=== PATIENT | male | born 1960 | race Caucasian/White ===

== ENCOUNTER 2018-11-14 14:50 | Emergency (ER) | payer OTHER ==
[2018-11-14 16:43] LABS: EOS # 0.1 (0.0-0.7); EOS % 0.5 % (1.5-5.0); HEMOGLOBIN 15.9 g/dL (14.0-18.0); LYMPH # 1.3 (1.2-3.4); LYMPH % 13.9 % (22.0-35.0); MEAN CELL VOLUME 90.9 fl (80.0-105.0); MEAN CORPUSCULAR HEMOGLOBIN 30.8 pg (25.0-35.0); MEAN CORPUSCULAR HGB CONC 33.8 g/dl (31.0-37.0); MEAN PLATELET VOLUME 10.2 fl (7.0-11.0); MONO # 0.3 (0.1-0.6); MONO % 3.5 % (1.0-6.0); RBC 5.17 10^6/uL (3.5-6.1); RED CELL DISTRIBUTION WIDTH 13.6 % (11.5-14.5); WHITE BLOOD COUNT 9.7 10^3/uL (4.5-11.0)
[2018-11-14 16:54] LABS: ALB/GLOB RATIO 1.2 (1.1-1.8); ALBUMIN 4.8 g/dL (3.0-4.8); BLOOD UREA NITROGEN 21 mg/dL (7-21); CALCIUM 9.9 mg/dL (8.4-10.5); GFR NON-AFRICAN AMERICAN > 60
[2018-11-14 16:57] LABS: ALT/SGPT 17 U/L (7-56); AST/SGOT 36 U/L (17-59)
[2018-11-14 17:26] VITALS: RESP 18
[2018-11-14] MEDS ORDERED: Iohexol 350 MG/100 ML VIAL ONE (17:40)
--- NOTE | 2018-11-14 17:41 | CARD ---
APPROVED REPORT Date of service: 11/14/2018 EKG Measurement Heart [id number] ID [id number] <Conclusion> Normal sinus rhythm Left anterior fascicular block Abnormal ECG
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
[2018-11-14 20:15] VITALS: TEMP 97.8
[2018-11-14 22:36] VITALS: BP 129/79; PULSE 75; O2SAT 99
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
== END 2018-11-14 22:35 | disposition home or self-care (01) ==
LOC: ED 14:50
DX: M54.2 Cervicalgia (principal); S09.90XA Unspecified injury of head, initial encounter; V49.9XXA Car occupant (driver) (passenger) injured in unspecified traffic accident, initial encounter; I10 Essential (primary) hypertension
CPT/HCPCS: 70450; 72052; 72125; 73030; 73562; 74177; 80053; 84484; 85025; 93005; 99285; Q9967